=== PATIENT | female | born 1965 | race African-American/Black ===

== ENCOUNTER → 2017-02-20 | Outpatient (CLI) | payer BC ==
--- NOTE | ~2017-02-20 | MR165 ---
[facility] A Service of [facility] & [facility] RADIOLOGY TEXT RESULTS PATIENT: SHOAIB QUESADA LOCATION: [facility] : 69 UNIT #: [id number] AGE: [address]: Navjot Nguyen MD SEX: F ORDER DR: [id number] [address] [id number] O MR#: [id number] Acc #: [id number] NAME: SHOAIB QUESADA : 1965 SEX: F STUDY DATE/TIME: 02/20/2017 13:51 UNIT: [facility] ROOM: STUDY DESCRIPTION: MR Shoulder Wo Contrast Rt Attending Physician: Navjot Nguyen M.D. Referring Physician: Navjot Nguyen M.D. Ordering Physician: Navjot Nguyen M.D. Primary Care Physician: Marah Maharaj M.D. MRI CENTER REPORT This report is preliminary unless electronic signature is present. EXAM MRI right shoulder 02/20/2017. HISTORY Order states dislocation right shoulder. History sheet states no specific injury voiced. No surgery. 2 shoulder dislocations this year, which patient reduced herself. Right shoulder pain. Limited range of motion, decreased strength. COMPARISON Right shoulder radiographs, 02/04/2017. FINDINGS There is very minimal superior spurring and capsuloligamentous thickening at the AC joint. There is an os acromiale with hypertrophic changes of the undersurface of the acromion at the os acromiale with supraspinatus muscle effacement. Coracoclavicular and coracoacromial ligaments are intact. There is severe supraspinatus tendinosis, especially along the articular side with a likely associated 17 x 15 mm partial undersurface tear (transverse by AP) with deep tendon retraction over the middle third of the humeral head. The tear is 50% is 75% in tendon thickness. No full-thickness tear is noted. There is however moderate inflammation in the subacromial-subdeltoid bursa. There is marked diffuse infraspinatus tendinosis without a tear. Subscapularis and teres minor tendons are intact. There is no rotator cuff muscle atrophy. Biceps anchor and biceps tendon are intact. There is complex signal long head bicipital tendinosis with debris, synovitis, and/or loose bodies in the tendon sheath. [facility]. [facility] A Service of [facility] & [facility] RADIOLOGY TEXT RESULTS PATIENT: SHOAIB QUESADA LOCATION: [facility] : 69 UNIT #: [id number] AGE: [address]: Navjot Nguyen MD SEX: F ORDER DR: There is a moderate complex signal glenohumeral effusion with extensive synovitis, debris, and/or loose bodies. There is a sizable zone of high-grade chondromalacia of the central glenoid with underlying, longstanding-appearing cystic change and surrounding marrow edema. At least low-grade humeral head chondromalacia is suspected posterosuperiorly. There is cystic enthesopathic change of the greater tuberosity, but no definite Hill-Sachs impaction injury or marrow edema from a recent dislocation. There is no sizable chronic Hill-Sachs deformity. There is no definitive labral pathology. Glenohumeral ligaments are unremarkable. No marrow lesion, fracture, or other abnormality is noted. IMPRESSION 1. Severe diffuse supraspinatus tendinosis with an associated 17 x 15 mm partial articular-sided tear detailed above. 2. Marked infraspinatus tendinosis without tear. 3. Subacromial-subdeltoid mild bursal inflammation. 4. Minimal AC joint arthrosis. There is, however, a hypertrophic os acromiale and the supraspinatus muscle effacement. 5. Complex signal moderate glenohumeral effusion and distended long head biceps tendon sheath, compatible with synovitis, debris, and/or loose bodies with biceps tenosynovitis. 6. 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 7. No definitive MR sequela of recent or chronic anteroinferior glenohumeral dislocation. Labrum appears unremarkable. Dictated by... Rocio Jamison M.D. THIS IS AN ELECTRONICALLY VERIFIED REPORT Rocio Jamison M.D. at 02/23/2017 9:40 AM ABRAHAM/ray TD: 02/21/2017 16:59 JOB #: [id number] MRI CENTER REPORT Page 1 of 1
== END | disposition home or self-care (01) ==
LOC: SMRI 02-19 10:15
DX: S43.004D Unspecified dislocation of right shoulder joint, subsequent encounter (principal); M75.101 Unspecified rotator cuff tear or rupture of right shoulder, not specified as traumatic; M75.81 Other shoulder lesions, right shoulder; M75.51 Bursitis of right shoulder; M25.411 Effusion, right shoulder; M19.011 Primary osteoarthritis, right shoulder; M94.211 Chondromalacia, right shoulder
CPT/HCPCS: 73221